=== PATIENT | male | born 1955 | race American Indian/Alaskan Native ===

== ENCOUNTER 2021-03-05 09:33 | Day surgery (SDC) | payer SELFPAY ==
[~2021-03-05 09:33] MED LIST: LACTATED RINGERS 1,000 ML IV SCH; MIDAZOLAM 2 MG/2 ML INJ IV NR
[2021-03-05] MEDS ORDERED: LIDOCAINE MPF (2%) 20 MG/1 ML VIAL 5 ML ONE (10:19)
[2021-03-05] MEDS ORDERED: propofoL 200 MG/20 ML VIAL IV ONE ×2 (10:20→11:56)
[2021-03-05] MEDS ORDERED: fentaNYL 100 MCG/2 ML INJ ONE ×2 (10:20→11:36)
[2021-03-05] MEDS ORDERED: HYDROmorphone 1 MG/1 ML INJ IV PRN (10:57)
[2021-03-05] MEDS ORDERED: ONDANSETRON 4 MG/2 ML INJ IV PRN (10:57)
[2021-03-05] MEDS ORDERED: HYDROcodone/ACETAMINOPHEN 5-325 MG TAB PO PRN (10:57)
[2021-03-05] MEDS ORDERED: ceFAZolin/STERILE WATER 2 GM/20 ML SYRINGE IV NR (11:00)
[2021-03-05] MEDS ORDERED: PHENYLEPHRINE/NS 1,000 MCG/10 ML SYRINGE (OR USE) IV ONE (11:29)
[2021-03-05] MEDS ORDERED: ePHEDrine SULFATE 50 MG/1 ML INJ ONE (11:29)
[2021-03-05] MEDS ORDERED: IOHEXOL 300 MG/ML 50ML IV ONE (11:36)
[2021-03-05 12:50] VITALS: BP 139/77
== END 2021-03-05 14:00 | disposition home or self-care (01) ==
LOC: OR 09:33
PROVIDERS: ATTEND Urology
DX: N21.0 Calculus in bladder (principal); I10 Essential (primary) hypertension; Z90.49 Acquired absence of other specified parts of digestive tract; Z79.899 Other long term (current) drug therapy; Z87.440 Personal history of urinary (tract) infections; Z87.442 Personal history of urinary calculi; Z98.890 Other specified postprocedural states
CPT/HCPCS: 52317; 74420; C1758; C1769; J0690; J2250; J2370; J2704; J3010; J7120; Q9967

== ENCOUNTER 2021-03-06 04:50 | Emergency (ER) | payer SELFPAY ==
[2021-03-06] MEDS ORDERED: SODIUM CHLORIDE 0.9% 1000 ML 1,000 ML IV ONE ×2 (05:14→07:16)
[2021-03-06] MEDS ORDERED: MORPHINE 4 MG/1 ML INJ IV ONE ×2 (05:14→07:28)
[2021-03-06] MEDS: ONDANSETRON 4 MG/2 ML INJ IV ONE ×2 (05:41→07:32)
[2021-03-06 06:46] LABS: Bacteria,Urine 1+ /HPF (Negative); Bilirubin,Urine NEG (Negative); Blood,Urine LG (Negative); Color,Urine Yellow (Yellow); Mucus,Urine FEW /HPF; Urobilinogen,Urine < 2.0 mg/dL (<2.0)
[2021-03-06 06:48] LABS: Protein,Urine >500 mg/dL (Negative); RBC,Urine > 182.0 /HPF (0.0-6.0); WBC,Urine > 182.0 /HPF (0.0-6.0)
--- NOTE | 2021-03-06 07:12 | Cat Scan Report ---
CT abdomen pelvis wo con INDICATION / CLINICAL INFORMATION: Patient complains of RIGHT flank and RIGHT pelvic pain. TECHNIQUE: Axial CT imaging of abdomen and pelvis was obtained without contrast. Coronal and sagittal reformatte d imaging obtained and reviewed. All CT scans at this location are performed using CT dose reduction for ALARA by means of automated exposure control. COMPARISON: None available. FINDINGS: CT abdomen without contrast demonstrates the presence of hepatic steatosis. The liver is otherwise un remarkable for noncontrast exam. Spleen, pancreas, adrenal glands, and gallbladder all appear grossly normal. There is a 3 mm nonobstructing calculus in the right kidney.There is a 4 mm nonobstructing c alculus in the lower pole calyx of the left kidney. No hydronephrosis or obvious renal mass identifie d. CT pelvis without contrast demonstrates marked enlargement of the prostate gland. Prostate gland kia ures approximately 7 x 5 cm. There are several small calculi seen within the urinary bladder. There are several bubbles of gas seen along the superior aspect of the urinary bladder on the right. There is minimal inflammatory change associated with the bubbles of gas but no free fluid. The patien t had retrograde ureterography on 03/05/2021. I suspect the free air and mild inflammatory change repre sents a contained perforation of the urinary bladder. Multiple small calculi are present within the u rinary bladder. The surrounding bowel loops appear unremarkable. I see no other evidence of free air or free fluid within the abdomen or pelvis. No additional abnormal findings are noted within the pelvis. The appendix is not identified. GI tract is grossly normal. Visualized lung bases are clear. Review of osseous structures is unremarkable. IMPRESSION: 1. Along the right superior aspect of the urinary bladder, there are localized bubbles of free air wi th mild inflammatory change. Given that the patient had recent instrumentation of the bladder yesterd ay, I suspect this represents a localized contained perforation of the urinary bladder. No free fluid or free air is seen anywhere else within the abdomen and pelvis. 2. Bilateral nephrolithiasis. Multiple calculi are present within the urinary bladder as well. 3. Hepatic steatosis. 4. Prominently enlarged prostate gland. Signer Name: Viridiana Pierre MD Signed: 03/06/2021 7:08 AM Workstation Name: [id number]
[2021-03-06] MEDS ORDERED: cefTRIAXone/NS 2 GM/100 ML 2 GM/100 ML BAG IV ONE (07:16)
[2021-03-06 07:24] LABS: Basophils % (Auto) 0.2 % (0.0-1.8); Hemoglobin 13.6 gm/dl (11.8-15.2); Lymphocytes # (Auto) 0.4 K/mm3 (1.2-5.4); Lymphocytes % (Auto) 3.6 % (13.4-35.0); Mean Corpuscular HGB Conc 34 % (32-34); Mean Corpuscular Volume 93 fl (84-94); Platelet Count 212 K/mm3 (140-440); Red Blood Count 4.29 M/mm3 (3.65-5.03); Red Cell Distribution Width 13.3 % (13.2-15.2)
[2021-03-06] MEDS ORDERED: ONDANSETRON 4 MG/2 ML INJ IV ONE (07:30)
--- NOTE | 2021-03-06 07:39 | Emergency Department Report ---
ED Male HPI - General Chief complaint: Urogenital-Male Stated complaint: PAINFUL URINATION/POST OP KIDNEY LASER SURG Time Seen by Provider: 03/06/21 07:10 Source: patient Mode of arrival: Ambulatory Limitations: No Limitations - History of Present Illness Initial comments: This is a 66-year-old male nontoxic, well nourished in appearance, no acute si gns of distress presents to the ED with c/o of dysuria, hematuria and flank pain x 1 day. Patient had a lithotripsy by Dr. Sparks yesterday and started to have worsening pain. Patient denies any abdominal pain or distention. Patient denies any penile discharge, bleeding, ulcers or lesions. Patient denies any pelvic or abdominal pain. Patient denies any nausea, vomiting, chest pain, shortness of breathe, fever, chills, headache, back pain, numbness, tingling, stiff neck. Patient denies any other urinary symptoms. Patient denies any allergies or PMH. MD Complaint: dysuria Radiation: none Severity: mild Severity scale (0 -10): 8 Quality: aching, burning Consistency: constant Improves with: none Worsens with: urination blood in urine, dysuria. denies: discharge, swelling, mass, rash, urinary retention, fever, nausea/vomiting, incontinence - Related Data Home Medications Medication Instructions Recorded Confirmed Last Taken Amlodipine Besylate/Valsartan 1 each PO DAILY 02/28/21 03/05/21 03/04/21 [Amlodipine-Valsartan 10-320 mg] Allergies Allergy/AdvReac Type Severity Reaction Status Date / Time No Known Allergies Allergy Verified 03/06/21 07:39 ED Review of Systems ROS: Stated complaint: PAINFUL URINATION/POST OP KIDNEY LASER SURG Other details as noted in HPI Comment: All other systems reviewed and negative Constitutional: denies: chills, fever Eyes: denies: eye pain, eye discharge, vision change ENT: denies: ear pain, throat pain Respiratory: denies: cough, shortness of breath, wheezing Cardiovascular: denies: chest pain, palpitations Endocrine: no symptoms reported Gastrointestinal: denies: abdominal pain, nausea, vomiting, diarrhea Genitourinary: dysuria, frequency, hematuria. denies: urgency, discharge, testicular pain, testicular mass Musculoskeletal: denies: back pain, joint swelling, arthralgia Skin: denies: rash, lesions Neurological: denies: headache, weakness, paresthesias Psychiatric: denies: anxiety, depression Hematological/Lymphatic: denies: easy bleeding, easy bruising ED Past Medical Hx - Past Medical History Previous Medical History?: Yes Hx Hypertension: Yes (toook anithypertensives last night) Hx Heart Attack/AMI: No Hx Liver Disease: No Hx Renal Disease: No Hx Kidney Stones: Yes - Surgical History Hx Appendectomy: Yes Additional Surgical History: Lithotripsy 03/05/2021 - Social History Smoking Status: Never Smoker Substance Use Type: None - Medications Home Medications: Home Medications Medication Instructions Recorded Confirmed Last Taken Type Amlodipine Besylate/Valsartan 1 each PO DAILY 02/28/21 03/05/21 03/04/21 History [Amlodipine-Valsartan 10-320 mg] ED Physical Exam - General Limitations: No Limitations General appearance: alert, in no apparent distress - Head Head exam: Present: atraumatic, normocephalic - Eye Eye exam: Present: normal appearance - Neck Neck exam: Present: normal inspection, full ROM. Absent: tenderness, meningismus, lymphadenopathy - Respiratory Respiratory exam: Present: normal lung sounds bilaterally. Absent: respiratory distress, wheezes, rales, rhonchi, stridor, chest wall tenderness, accessory muscle use, decreased breath sounds, prolonged expiratory - Cardiovascular Cardiovascular Exam: Present: regular rate, normal rhythm, tachycardia, normal heart sounds. Absent: irregular rhythm, systolic murmur, diastolic murmur, rubs, gallop - GI/Abdominal GI/Abdominal exam: Present: soft, normal bowel sounds. Absent: distended, tenderness, guarding, rebound, rigid, diminished bowel sounds - Extremities Exam Extremities exam: Present: normal inspection, full ROM, normal capillary refill. Absent: tenderness - Back Exam Back exam: Present: normal inspection, full ROM. Absent: tenderness, CVA tenderness (R), CVA tenderness (L), muscle spasm, paraspinal tenderness, vertebral tenderness, rash noted - Neurological Exam Neurological exam: Present: alert, oriented X3, normal gait - Psychiatric Psychiatric exam: Present: normal affect, normal mood - Skin Skin exam: Present: warm, dry, intact, normal color. Absent: rash ED Course Vital Signs 03/06/21 03/06/21 03/06/21 04:56 05:40 07:39 Temperature 98.9 F 98.9 F Pulse Rate 102 H 80 Respiratory 18 18 Rate Blood Pressure 141/77 144/84 Blood Pressure [Right] O2 Sat by Pulse 96 98 99 Oximetry 03/06/21 03/06/21 03/06/21 07:41 07:45 08:01 Temperature Pulse Rate 95 H Respiratory 17 Rate Blood Pressure 143/72 133/66 Blood Pressure 143/72 [Right] O2 Sat by Pulse 97 97 94 Oximetry 03/06/21 03/06/21 03/06/21 08:15 08:31 08:45 Temperature Pulse Rate Respiratory Rate Blood Pressure 133/66 127/73 127/73 Blood Pressure [Right] O2 Sat by Pulse 97 94 94 Oximetry 03/06/21 03/06/21 03/06/21 09:01 09:15 09:31 Temperature Pulse Rate Respiratory Rate Blood Pressure 126/61 126/61 148/85 Blood Pressure [Right] O2 Sat by Pulse 95 97 98 Oximetry 03/06/21 09:45 Temperature Pulse Rate Respiratory Rate Blood Pressure 148/85 Blood Pressure [Right] O2 Sat by Pulse 97 Oximetry - Reevaluation(s) Reevaluation #1: 03/06/21 07:44 Patient is speaking in full sentences with no signs of distress noted. - Consultations Consultation #1: 03/06/21 07:44 Patient has been consulted with Dr. So ([facility], Dr. Sparks colleague) about patient history, physical exam, and labs/CT results and agrees to the ED medications given and instructed that patient to get a Villatoro catheter and discharged with follow-up in 3 to 5 days. Consultation #2: 03/06/21 09:52 Patient has been consulted with Dr. Sparks about patient history, physical exam, and labs/CT results with possible admission for perforated bladder which stated is unlikely and stated patient can be discharged with a Villatoro catheter and continue taking antibiotics and pain medication as prescribed. 03/06/21 09:59 Patient has been consulted with Dr. Bishop about patient history, physical exam, and labsCT results and urologists recommendation and agrees to ED plan of care and discharge plan of care. ED Medical Decision Making - Lab Data Result diagrams: 03/06/21 06:53 03/06/21 06:53 Lab Results 03/06/21 03/06/21 03/06/21 Range/Units 06:53 06:53 08:01 WBC 12.1 H (4.5-11.0) K/mm3 RBC 4.29 (3.65-5.03) M/mm3 Hgb 13.6 (11.8-15.2) gm/dl Hct 40.0 (35.5-45.6) % MCV 93 (84-94) fl MCH 32 (28-32) pg MCHC 34 (32-34) % RDW 13.3 (13.2-15.2) % Plt Count 212 (140-440) K/mm3 Lymph % (Auto) 3.6 L (13.4-35.0) % [place] % (Auto) 8.0 H (0.0-7.3) % Eos % (Auto) 0.0 (0.0-4.3) % Baso % (Auto) 0.2 (0.0-1.8) % Lymph # (Auto) 0.4 L (1.2-5.4) K/mm3 [place] # (Auto) 1.0 H (0.0-0.8) K/mm3 Eos # (Auto) 0.0 (0.0-0.4) K/mm3 Baso # (Auto) 0.0 (0.0-0.1) K/mm3 Seg Neutrophils % 88.2 H (40.0-70.0) % Seg Neutrophils # 10.6 H (1.8-7.7) K/mm3 Sodium 137 (137-145) mmol/L Potassium 4.5 (3.6-5.0) mmol/L Chloride 100.8 (98-107) mmol/L Carbon Dioxide 26 (22-30) mmol/L Anion Gap 15 mmol/L BUN 19 (9-20) mg/dL Creatinine 1.4 H (0.8-1.3) mg/dL Estimated GFR > 60 ml/min BUN/Creatinine Ratio 14 % Glucose 121 H (75-100) mg/dL Lactic Acid (0.7-2.0) mmol/L Calcium 9.7 (8.4-10.2) mg/dL Total Bilirubin 0.80 (0.1-1.2) mg/dL Direct Bilirubin < 0.2 (0-0.2) mg/dL Indirect Bilirubin 0.6 mg/dL AST 23 (5-40) units/L ALT 8 (7-56) units/L Alkaline Phosphatase 63 (35-129) units/L Total Protein 6.0 L (6.3-8.2) g/dL Albumin 4.1 (3.9-5) g/dL Albumin/Globulin Ratio 2.2 % Urine Color (Yellow) Urine Turbidity (Clear) Urine pH (5.0-7.0) Ur Specific [place] (1.003-1.030) Urine Protein (Negative) mg/dL Urine Glucose (UA) (Negative) mg/dL Urine Ketones (Negative) mg/dL Urine Blood (Negative) Urine Nitrite (Negative) Urine Bilirubin (Negative) Urine Urobilinogen (<2.0) mg/dL Ur Leukocyte Esterase (Negative) Urine WBC (Auto) (0.0-6.0) /HPF Urine RBC (Auto) (0.0-6.0) /HPF U Epithel Cells (Auto) (0-13.0) /HPF Urine Bacteria (Auto) (Negative) /HPF Urine Mucus /HPF 03/06/21 03/06/21 Range/Units 08:01 Unknown WBC (4.5-11.0) K/mm3 RBC (3.65-5.03) M/mm3 Hgb (11.8-15.2) gm/dl Hct (35.5-45.6) % MCV (84-94) fl MCH (28-32) pg MCHC (32-34) % RDW (13.2-15.2) % Plt Count (140-440) K/mm3 Lymph % (Auto) (13.4-35.0) % [place] % (Auto) (0.0-7.3) % Eos % (Auto) (0.0-4.3) % Baso % (Auto) (0.0-1.8) % Lymph # (Auto) (1.2-5.4) K/mm3 [place] # (Auto) (0.0-0.8) K/mm3 Eos # (Auto) (0.0-0.4) K/mm3 Baso # (Auto) (0.0-0.1) K/mm3 Seg Neutrophils % (40.0-70.0) % Seg Neutrophils # (1.8-7.7) K/mm3 Sodium (137-145) mmol/L Potassium (3.6-5.0) mmol/L Chloride (98-107) mmol/L Carbon Dioxide (22-30) mmol/L Anion Gap mmol/L BUN (9-20) mg/dL Creatinine (0.8-1.3) mg/dL Estimated GFR ml/min BUN/Creatinine Ratio % Glucose (75-100) mg/dL Lactic Acid 2.20 H* (0.7-2.0) mmol/L Calcium (8.4-10.2) mg/dL Total Bilirubin (0.1-1.2) mg/dL Direct Bilirubin (0-0.2) mg/dL Indirect Bilirubin mg/dL AST (5-40) units/L ALT (7-56) units/L Alkaline Phosphatase (35-129) units/L Total Protein (6.3-8.2) g/dL Albumin (3.9-5) g/dL Albumin/Globulin Ratio % Urine Color Yellow (Yellow) Urine Turbidity Slightly-cloudy (Clear) Urine pH 6.0 (5.0-7.0) Ur Specific [place] 1.019 (1.003-1.030) Urine Protein >500 (Negative) mg/dL Urine Glucose (UA) Neg (Negative) mg/dL Urine Ketones Neg (Negative) mg/dL Urine Blood Lg (Negative) Urine Nitrite Neg (Negative) Urine Bilirubin Neg (Negative) Urine Urobilinogen < 2.0 (<2.0) mg/dL Ur Leukocyte Esterase Mod (Negative) Urine WBC (Auto) > 182.0 H (0.0-6.0) /HPF Urine RBC (Auto) > 182.0 (0.0-6.0) /HPF U Epithel Cells (Auto) 1.0 (0-13.0) /HPF Urine Bacteria (Auto) 1+ (Negative) /HPF Urine Mucus Few /HPF - Radiology Data [facility] [address] [place] [address] Cat Scan Report Signed Patient: THANG ELIZABETH MR#: [id number] 11 : 1955 Acct:[id number] Age/Sex: 66 / M ADM Date: 03/06/21 Loc: ED Attending Dr: Ordering Physician: DIANA JOHN Date of Service: 03/06/21 Procedure(s): CT abdomen pelvis wo con Accession Number(s): [id number] cc: DIANA JOHN CT abdomen pelvis wo con INDICATION / CLINICAL INFORMATION: Patient complains of RIGHT flank and RIGHT pelvic pain. TECHNIQUE: Axial CT imaging of abdomen and pelvis was obtained without contrast. Coronal and sagittal reformatted imaging obtained and reviewed. All CT scans at this [facility] ation are performed using CT dose reduction for ALARA by means of automated exposure control. COMPARISON: None available. FINDINGS: CT abdomen without contrast demonstrates the presence of hepatic steatosis. The liver is otherwise unremarkable for noncontrast exam. Spleen, pancreas, adrenal glands, and gallbladder all appear grossly normal. There is a 3 mm nonobstructing calculus in the right kidney.There is a 4 mm nonobstructing calculus in the lower pole calyx of the left kidney. No hydronephrosis or obvious renal mass identified. CT pelvis without contrast demonstrates marked enlargement of the prostate gland. Prostate gland measures approximately 7 x 5 cm. There are several small calculi seen within the urinary bladder. There are several bubbles of gas seen along the superior aspect of the urinary bladder on the right. There is minimal inflammatory change associated with the bubbles of gas but no free fluid. The patient had retrograde ureterography on 03/05/2021. I suspect the free air and mild inflammatory change represents a contained perforation of the urinary bladder. Multiple small calculi are present within the urinary bladder. The surrounding bowel loops appear unremarkable. I see no other evidence of free air or free fluid within the abdomen or pelvis. No additional abnormal findings are noted within the pelvis. The appendix is not identified. GI tract is grossly normal. Visualized lung bases are clear. Review of osseous structures is unremarkable. IMPRESSION: 1. Along the right superior aspect of the urinary bladder, there are localized bubbles of free air with mild inflammatory change. Given that the patient had recent instrumentation of the bladder yesterday, I suspect this represents a localized contained perforation of the urinary bladder. No free fluid or free air is seen anywhere else within the abdomen and pelvis. 2. Bilateral nephrolithiasis. Multiple calculi are present within the urinary bladder as well. 3. Hepatic steatosis. 4. Prominently enlarged prostate gland. Signer Name: Viridiana Pierre MD Signed: 03/06/2021 7:08 AM Workstation Name: [id number] Transcribed By: JR Dictated By: Viridiana Pierre MD Electronically Authenticated By: Viridiana Pierre MD Signed Date/Time: 03/06/21707 DD/ 5 TD/TT: - Medical Decision Making 66-year-old male that presents with UTI and postop complications. Patient stable and was examined by me. Patient was consulted with urologist x2 which both physicians stated is unlikely a perforated bladder and patient to be discharged with Villatoro catheter and follow-up in the office in 3 to 5 days. Patient pain is currently under control with IV medications. IV antibiotics initiated. Patient was instructed to follow-up with a Dr. Sparks in 2 days or if symptoms worsen and continue return to emergency room as soon as possible. At time of discharge, the patient does not seem toxic or ill in appearance. No acute signs of distress noted. Patient agrees to discharge treatment plan of care. No further questions noted by the patient. Critical care attestation.: If time is entered above; I have spent that time in minutes in the direct care of this critically ill patient, excluding procedure time. ED Disposition Clinical Impression: Post-op pain, Bladder perforation, intraoperative UTI (urinary tract infection) Qualifiers: Urinary tract infection type: acute pyelonephritis Qualified Code(s): N10 - Acute pyelonephritis Disposition: - TO HOME OR SELFCARE Is pt being admited?: No Does the pt Need Aspirin: No Condition: Stable Instructions: Urinary Tract Infection, Adult Additional Instructions: Follow-up with Dr. Sparks in 2 days or if symptoms worsen and continue return to emergency room as soon as possible. Continue taking medications for pain and antibiotics as prescribed to you by Dr. Sparks. Referrals: PRIMARY CARE, [Primary Care Provider] - 3-5 Days JUNG SPARKS MD [Staff Physician] - Time of Disposition: 10:04
[2021-03-06 07:45] LABS: BUN/Creatinine Ratio 14; Blood Urea Nitrogen 19 mg/dL (9-20); Calcium 9.7 mg/dL (8.4-10.2); Hemolysis Index 1
[2021-03-06 08:44] LABS: Alanine Aminotransferase 8 units/L (7-56); Albumin 4.1 g/dL (3.9-5)
[2021-03-06 09:11] LABS: Bilirubin,Direct < 0.2 mg/dL (0-0.2)
[2021-03-06] MEDS ORDERED: DICYCLOMINE 20 MG TAB PO ONE (10:10)
[2021-03-06] MEDS ORDERED: LIDOCAINE VISCOUS 2% 15 ML ORAL LIQD PO ONE (10:11)
[2021-03-06] MEDS ORDERED: ALUM-MAG HYDROXIDE-SIMETHICONE 200-200-20MG/5ML ORAL LIQD 30 ML PO ONE (10:12)
[2021-03-06] MEDS ORDERED: FAMOTIDINE 20 MG TAB PO ONE (10:12)
[2021-03-06 10:22] VITALS: BP 123/58
== END 2021-03-06 10:32 | disposition home or self-care (01) ==
LOC: ED 04:50
DX: N39.0 Urinary tract infection, site not specified (principal); G89.18 Other acute postprocedural pain; N99.72 Accidental puncture and laceration of a genitourinary system organ or structure during other procedure; I10 Essential (primary) hypertension; Z90.49 Acquired absence of other specified parts of digestive tract; Z79.899 Other long term (current) drug therapy; Z98.890 Other specified postprocedural states
CPT/HCPCS: 36415; 51702; 74176; 80048; 80076; 81001; 82140; 85025; 96361; 96365; 96375; 96376; 99284; J0696; J2270; J2405; J7030